=== PATIENT | male | born 1995 | race Caucasian/White ===

== ENCOUNTER → 2023-09-30 17:38 | Outpatient (REF) | payer OTHER, SELFPAY | LOC: RAD 17:38 | PROVIDERS: ATTENDING PHYSICIAN Student in an Organized Health Care Education/Training Program; FAMILY PHYSICIAN Family Medicine | DX: R07.81 Pleurodynia (principal) | CPT/HCPCS: 71101 ==

== ENCOUNTER → 2023-10-28 06:29 | Day surgery (SDC) | payer OTHER, SELFPAY | LOC: GI 06:29 | PROVIDERS: ATTENDING PHYSICIAN Internal Medicine; FAMILY PHYSICIAN Family Medicine | DX: K29.60 Other gastritis without bleeding (principal); K31.89 Other diseases of stomach and duodenum; K90.0 Celiac disease; D72.820 Lymphocytosis (symptomatic); K29.50 Unspecified chronic gastritis without bleeding | CPT/HCPCS: 43239; 88305; 88342 ==

== ENCOUNTER 2024-10-21 06:13 | Day surgery (SDC) | payer OTHER, SELFPAY | END 2024-10-21 13:45 | disposition home or self-care (01) | LOC: GI 06:13 | PROVIDERS: ATTENDING PHYSICIAN Internal Medicine; FAMILY PHYSICIAN Family Medicine | DX: K52.9 Noninfective gastroenteritis and colitis, unspecified (principal); K64.8 Other hemorrhoids; R19.4 Change in bowel habit | CPT/HCPCS: 45380; 88305 ==

== ENCOUNTER 2025-06-21 06:14 | Day surgery (SDC) | payer BC, SELFPAY | END 2025-06-21 11:57 | disposition home or self-care (01) | LOC: GI 06:14 | PROVIDERS: ATTENDING PHYSICIAN Internal Medicine | DX: D50.9 Iron deficiency anemia, unspecified (principal); K20.90 Esophagitis, unspecified without bleeding; K31.89 Other diseases of stomach and duodenum; K90.0 Celiac disease | CPT/HCPCS: 44361; 88305 ==